=== PATIENT | female | born 1960 | race Asian ===

== ENCOUNTER → 2024-07-09 16:38 | Outpatient (REF) | payer BC, SELFPAY | LOC: WDC 16:38 | PROVIDERS: ATTENDING PHYSICIAN Family Medicine | DX: Z12.31 Encounter for screening mammogram for malignant neoplasm of breast (principal) | CPT/HCPCS: 77063; 77067 ==

== ENCOUNTER → 2025-08-27 17:06 | Outpatient (REF) | payer BC, SELFPAY | LOC: WDC 17:06 | PROVIDERS: ATTENDING PHYSICIAN Family Medicine | DX: Z12.31 Encounter for screening mammogram for malignant neoplasm of breast (principal) | CPT/HCPCS: 77063; 77067 ==